=== PATIENT | female | born 1980 | race Caucasian/White ===

== ENCOUNTER 2019-03-29 08:08 | Emergency (ER) | payer OTHER, MEDICAID ==
[2019-03-29] MEDS: DEXAMETHASONE 10 MG/ML 1 ML INJ IM (08:53)
[2019-03-29] MEDS: DIAZEPAM 5 MG TAB PO (08:53)
[2019-03-29] MEDS: KETOROLAC 60 MG INJ IM (08:54)
[2019-03-29 09:20] LABS: ADD UMIC YES; UR ASCORBIC ACID NEGATIVE (NEGATIVE); UR BILIRUBIN (Dip) NEGATIVE (NEGATIVE); UR BLOOD (Dip) 1+ mg/dL (NEGATIVE); UR CLARITY CLEAR (CLEAR); UR COLOR YELLOW (YELLOW); UR GLUCOSE (Dip) NEGATIVE (NEGATIVE); UR KETONES (Dip) NEGATIVE (NEGATIVE); UR LEUKOCYTE ESTERASE (Dip) NEGATIVE Leu/ul (NEGATIVE); UR NITRITE (Dip) NEGATIVE (NEGATIVE); UR RBC 0 /HPF (0-5); UR SPECIFIC GRAVITY (Dip) 1.016 (1.003-1.030); UR SQUAMOUS EPITHELIAL CELL FEW /HPF (FEW); UR TOTAL PROTEIN (Dip) NEGATIVE (NEGATIVE); UR UROBILINOGEN (Dip) NEGATIVE (NEGATIVE); UR WBC 2 /HPF (0-5)
== END 2019-03-29 09:41 | disposition home or self-care (01) ==
LOC: FTE 09:41
DX: M54.5 Low back pain (principal)
CPT/HCPCS: 72100; 81001; 81025; 96372; 99284-25

== ENCOUNTER 2019-06-06 10:18 | Emergency (ER) | payer OTHER ==
[2019-06-06] MEDS: KETOROLAC 30 MG INJ IM (11:15)
== END 2019-06-06 11:26 | disposition home or self-care (01) ==
LOC: FTE 10:18
DX: M54.5 Low back pain (principal); G89.29 Other chronic pain
CPT/HCPCS: 81025; 96372; 99284-25